=== PATIENT | male | born 1980 | race Caucasian/White ===

== ENCOUNTER 2017-10-04 10:17 | Emergency (ER) | payer OTHER ==
[2017-10-04 10:52] LABS: BASOPHILS % (AUTO) 0.4 %; EOSINOPHILS # (AUTO) 0.2 10^3/uL (0.0-0.7); EOSINOPHILS % (AUTO) 3.4 %; HGB - HEMOGLOBIN 15.2 g/dL (14.0-18.0); LYMPHOCYTES # (AUTO) 2.2 10^3/uL (1.5-3.5); LYMPHOCYTES % (AUTO) 36.7 %; MEAN CORPUSCULAR HEMOGLOBIN 31.1 pg (27.0-31.0); MEAN CORPUSCULAR HGB CONC 34.6 g/dL (32.0-36.0); MEAN CORPUSCULAR VOLUME 89.9 fL (80.0-94.0); MEAN PLATELET VOLUME 8.7 fL (7.4-11.4); MONOCYTES # (AUTO) 0.5 10^3/uL (0.0-1.0); MONOCYTES % (AUTO) 7.5 %; NEUTROPHILS # (AUTO) 3.1 10^3/uL (1.5-6.6); PLT - PLATELET COUNT 171 10^3/uL (130-450); RED CELL DISTRIBUTION WIDTH 13.4 % (12.0-15.0)
--- NOTE | 2017-10-04 10:59 | XRAY Report ---
Procedure Date: 10/04/2017 Accession Number: [id number] / [id number] Procedure: XR - Chest 2 View X-Ray CPT Code: 42209 FULL RESULT: EXAM: CHEST RADIOGRAPHY EXAM DATE: 10/04/2017 10:53 AM. CLINICAL HISTORY: Chest pain. COMPARISON: None. TECHNIQUE: 2 views. FINDINGS: Lungs/Pleura: No focal opacities evident. No pleural effusion. No pneumothorax. Normal volumes. Mediastinum: Heart and mediastinal contours are unremarkable. Other: Unremarkable bony structures.. IMPRESSION: Negative 2-view chest radiography. [facility]
--- NOTE | 2017-10-04 11:03 | ED Physician Documentation ---
PD HPI CHEST PAIN - Stated complaint Stated Complaint: CHEST PAIN - Chief complaint Chief Complaint: Cardiac - History obtained from History obtained from: Patient - History of Present Illness Timing - onset: How many days ago (6) Timing - onset during: Rest Timing - duration: Days (6) Timing - details: Still present, Intermittant (more often the past 2 days, right sharp pain, not associated with activity but is worse with certain motions , mostly of shoulder. Some with breathing deeply. No dyspnea per se. No cough.) Quality: Aching, Sharp, Pain Location: Right chest Radiation: No: Jaw, Neck, Back Worsened by: Inspiration, Movement, Position (lying on side). No: Palpation Associated symptoms: No: Shortness of air, Diaphoresis, Nausea, Feeling faint / dizzy, Cough Similar symptoms before: Has not had sx before Recently seen: Not recently seen Review of Systems Constitutional: denies: Fever, Chills, Myalgias Nose: denies: Rhinorrhea / runny nose, Congestion Throat: denies: Sore throat Cardiac: reports: Chest pain / pressure. denies: Palpitations, Pedal edema, Calf pain Respiratory: denies: Dyspnea, Cough, Wheezing GI: denies: Abdominal Pain, Nausea, Vomiting Musculoskeletal: denies: Back pain, Extremity swelling Neurologic: denies: Generalized weakness, Near syncope PD PAST MEDICAL HISTORY - Past Medical History Cardiovascular: None Respiratory: None Neuro: None Endocrine/Autoimmune: None - Present Medications Home Medications: Ambulatory Orders Medication Instructions Recorded Confirmed Naproxen [Naprosyn] 500 mg PO BID #20 tablet 10/04/17 - Allergies Allergies/Adverse Reactions: Allergies Allergy/AdvReac Type Severity Reaction Status Date / Time No Known Drug Allergies Allergy Verified 10/04/17 10:23 - Living Situation Living Arrangement: reports: At home - Social History Does the pt smoke?: Yes Smoking Status: Current every day smoker Does the pt drink ETOH?: Yes Does the pt have substance abuse?: No - Family History Family history: denies: CAD, Sudden PD ED PE NORMAL - Vitals Vital signs reviewed: Yes - General General: Alert and oriented X 3, No acute distress, Well developed/nourished - HEENT HEENT: Ears normal, Pharynx benign - Neck Neck: Supple, no meningeal sign, No adenopathy - Cardiac Cardiac: RRR, No murmur - Respiratory Respiratory: Clear bilaterally, Other (no chestwall tenderness) - Abdomen Abdomen: Soft, Non tender - Back Back: No CVA TTP, No spinal TTP - Derm Derm: Normal color, Warm and dry, No rash - Extremities Extremities: No deformity, No tenderness to palpate, No edema, No calf tenderness / cord - Neuro Neuro: Alert and oriented X 3, No motor deficit, Normal speech Results - Vitals Vitals: Vital Signs - 24 hr 10/04/17 10/04/17 10:21 11:56 Temperature 35.7 C L 36.0 C L Heart Rate 80 60 Respiratory 20 20 Rate Blood Pressure 164/98 H 115/89 H O2 Saturation 98 97 Oxygen O2 Source Room air - EKG (time done) 10:26 Rate: Rate (enter#) (67) Rhythm: NSR [place]: Normal Intervals: Normal [place] QRS: Normal Ischemia: Normal ST segments. No: ST elevation c/w ischemia, ST depression, Hyperacute T waves - Labs Labs: Laboratory Tests 10/04/17 10/04/17 10/04/17 10:30 10:30 10:30 WBC 6.0 RBC 4.90 Hgb 15.2 Hct 44.1 MCV 89.9 MCH 31.1 H MCHC 34.6 RDW 13.4 Plt Count 171 MPV 8.7 Neut # (Auto) 3.1 Lymph # (Auto) 2.2 [place] # (Auto) 0.5 Eos # (Auto) 0.2 Baso # (Auto) 0.0 Absolute Nucleated RBC 0.00 Nucleated RBC % 0.0 Sodium 136 Potassium 4.3 Chloride 102 Carbon Dioxide 26 Anion Gap 8.0 BUN 12 Creatinine 1.1 Estimated GFR (MDRD) 76 L Glucose 95 Calcium 9.2 Total Bilirubin 1.1 H AST 28 ALT 38 Alkaline Phosphatase 62 Troponin I < 0.04 Total Protein 7.8 Albumin 4.1 Globulin 3.7 Albumin/Globulin Ratio 1.1 Lipase 33 - Rads (name of study) chest xray Radiology: Prelim report reviewed (no acute process), EMP read contemporaneously PD MEDICAL DECISION MAKING - ED course Complexity details: reviewed results, considered differential (right chest pain sounds musculoskeletal, with movement and deep breathing. CXR and ECG are okay. ), d/w patient - Sepsis Event Vital Signs: Vital Signs - 24 hr 10/04/17 10/04/17 10:21 11:56 Temperature 35.7 C L 36.0 C L Heart Rate 80 60 Respiratory 20 20 Rate Blood Pressure 164/98 H 115/89 H O2 Saturation 98 97 Oxygen O2 Source Room air Departure - Departure Disposition: 01 Home, Self Care Clinical Impression: Right-sided chest pain Condition: Stable Record reviewed to determine appropriate education?: Yes Instructions: ED Chest Pain Atypical Unkn Cause Follow-Up: STEFANIA SEWELL MD [Primary Care Provider] - Prescriptions: Naproxen [Naprosyn] 500 mg PO BID #20 tablet Comments: Your EKG, chest x-ray, blood tests are normal without any signs of heart or lung cause of the pain. Presume more musculoskeletal at this time and would go with some anti-inflammatories such as naproxen twice daily for the next 7-10 days. Follow-up with your primary care in the next few days, call for an appointment. Recheck if other symptoms developing. Discharge Date/Time: 10/04/17 11:57
[2017-10-04 11:09] LABS: ALBUMIN 4.1 g/dL (3.2-5.5); ALBUMIN/GLOBULIN RATIO 1.1 (1.0-2.2); BILIRUBIN,TOTAL 1.1 mg/dL (0.2-1.0); CALCIUM 9.2 mg/dL (8.5-10.3); CREATININE 1.1 mg/dL (0.6-1.2); TOTAL PROTEIN 7.8 g/dL (6.7-8.2)
[2017-10-04] MEDS ORDERED: IBUPROFEN 600 MG TABLET PO STA (11:44)
[2017-10-04] MEDS ORDERED: ACETAMINOPHEN 325 MG TABLET PO STA (11:44)
[2017-10-04 11:57] VITALS: BP 115/89
== END 2017-10-04 11:57 | disposition home or self-care (01) ==
LOC: ED 10:17
DX: R07.9 Chest pain, unspecified (principal); F17.200 Nicotine dependence, unspecified, uncomplicated
CPT/HCPCS: 36415; 71046; 80053; 83690; 84484; 85025; 93005; 99283; A9270

== ENCOUNTER 2018-09-28 09:13 | Emergency (ER) | payer OTHER ==
[2018-09-28 09:58] LABS: BASOPHILS % (AUTO) 0.5 %; EOSINOPHILS # (AUTO) 0.3 10^3/uL (0.0-0.7); EOSINOPHILS % (AUTO) 4.9 %; HGB - HEMOGLOBIN 13.7 g/dL (14.0-18.0); LYMPHOCYTES # (AUTO) 1.8 10^3/uL (1.5-3.5); MEAN CORPUSCULAR HEMOGLOBIN 29.1 pg (27.0-31.0); MEAN CORPUSCULAR HGB CONC 32.2 g/dL (32.0-36.0); MEAN CORPUSCULAR VOLUME 90.4 fL (80.0-94.0); MEAN PLATELET VOLUME 10.1 fL (7.4-11.4); MONOCYTES # (AUTO) 0.4 10^3/uL (0.0-1.0); NEUTROPHILS # (AUTO) 2.9 10^3/uL (1.5-6.6); NEUTROPHILS % (AUTO) 53.4 %; PLT - PLATELET COUNT 216 10^3/uL (130-450); RED BLOOD COUNT 4.71 10^6/uL (4.70-6.10); RED CELL DISTRIBUTION WIDTH 13.8 % (12.0-15.0); WHITE BLOOD COUNT 5.5 x10^3/uL (4.8-10.8)
[2018-09-28 10:04] LABS: ALBUMIN/GLOBULIN RATIO 1.1 (1.0-2.2); BILIRUBIN,TOTAL 0.6 mg/dL (0.2-1.0); CALCIUM 9.5 mg/dL (8.5-10.3); TOTAL PROTEIN 7.5 g/dL (6.7-8.2)
[2018-09-28 10:07] VITALS: BP 129/95
[2018-09-28 10:13] LABS: BILIRUBIN,URINE NEGATIVE (NEGATIVE); GLUCOSE, URINE (UA) NEGATIVE (NEGATIVE); KETONES,URINE (UA) NEGATIVE (NEGATIVE); LEUKOCYTE ESTERASE, URINE NEGATIVE (NEGATIVE); NITRITE,URINE NEGATIVE (NEGATIVE); OCCULT BLOOD,URINE NEGATIVE (NEGATIVE); PH,URINE 6.5 PH (5.0-7.5); PROTEIN,URINE NEGATIVE (NEGATIVE); UROBILINOGEN,URINE 1 (NORMAL) E.U./dL (NORMAL)
[2018-09-28 10:24] LABS: CLARITY,URINE CLEAR (CLEAR)
[2018-09-28] MEDS ORDERED: KETOROLAC 30 MG/ML VIAL IVP STA (10:29)
--- NOTE | 2018-09-28 11:56 | ED Physician Documentation ---
History of Present Illness - Stated complaint Stated Complaint: ABD PX - Chief complaint Chief Complaint: Abd Pain - History obtained from History obtained from: Patient - History of Present Illness Timing: Other (2-3 days) Pain level max: 3 Pain level now: 2 Improved by: rest Worsened by: movement - Additonal information Additional information: 38-year-old male presents to the emergency department stating that he has left anterior abdominal pain for the past 3 to 4 days. He states that at approximately 3 months ago, he fell while in [place], suffered a splenic hematoma, kidney hematoma. He states these were nonoperative, observed in the hospital for 1 to 2 days and then sent home. He also had rib fractures at that time. Since that time he has had chronic left-sided back pain. States that he was off of work, but is now started working out again and has been the abdominal pain. No nausea. No vomiting. No diarrhea. No constipation. No fevers. Has not taken anything for the pain. He is active duty. Review of Systems Constitutional: denies: Fever, Chills Respiratory: denies: Cough GI: denies: Nausea, Vomiting, Constipation, Diarrhea, Hematemesis, Bloody / black stool : denies: Dysuria, Frequency, Hesitancy, Hematuria Musculoskeletal: denies: Neck pain, Back pain PD PAST MEDICAL HISTORY - Past Medical History Cardiovascular: None Respiratory: None Neuro: None Endocrine/Autoimmune: None - Present Medications Home Medications: Ambulatory Orders Medication Instructions Recorded Confirmed Naproxen [Naprosyn] 500 mg PO BID #20 tablet 10/04/17 Meloxicam [Mobic] 15 mg PO DAILY PRN #20 tablet 09/28/18 - Allergies Allergies/Adverse Reactions: Allergies Allergy/AdvReac Type Severity Reaction Status Date / Time No Known Drug Allergies Allergy Verified 09/28/18 09:23 - Social History Does the pt smoke?: Yes Smoking Status: Current every day smoker Does the pt drink ETOH?: Yes Does the pt have substance abuse?: No PD ED PE NORMAL - Vitals Vital signs reviewed: Yes - General General: Alert and oriented X 3, No acute distress, Well developed/nourished - HEENT HEENT: Moist mucous membranes - Neck Neck: Supple, no meningeal sign - Cardiac Cardiac: RRR, Strong equal pulses - Respiratory Respiratory: No respiratory distress, Clear bilaterally - Abdomen Abdomen: Soft, Non tender, Non distended - Back Back: No CVA TTP, No spinal TTP - Derm Derm: Warm and dry - Extremities Extremities: No edema, No calf tenderness / cord - Neuro Neuro: Alert and oriented X 3, 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, No motor deficit, No sensory deficit, Normal speech - Psych Psych: Normal mood, Normal affect Results - Vitals Vitals: Vital Signs - 24 hr 09/28/18 09/28/18 09/28/18 09:19 10:06 10:57 Temperature 36.4 C L Heart Rate 72 58 L 50 L Respiratory 16 16 17 Rate Blood Pressure 146/93 H 129/95 H 129/95 H O2 Saturation 99 99 98 09/28/18 12:05 Temperature 36.7 C Heart Rate 57 L Respiratory 18 Rate Blood Pressure 129/95 H O2 Saturation 99 Oxygen O2 Source Room air - Labs Labs: Laboratory Tests 09/28/18 09/28/18 09/28/18 09:40 09:40 09:50 WBC 5.5 RBC 4.71 Hgb 13.7 L Hct 42.6 MCV 90.4 MCH 29.1 MCHC 32.2 RDW 13.8 Plt Count 216 MPV 10.1 Neut # (Auto) 2.9 Lymph # (Auto) 1.8 [place] # (Auto) 0.4 Eos # (Auto) 0.3 Baso # (Auto) 0.0 Absolute Nucleated RBC 0.00 Nucleated RBC % 0.0 Sodium 140 Potassium 4.2 Chloride 105 Carbon Dioxide 25 Anion Gap 10.0 BUN 10 Creatinine 1.0 Estimated GFR (MDRD) 85 L Glucose 97 Calcium 9.5 Total Bilirubin 0.6 AST 34 ALT 39 Alkaline Phosphatase 58 Total Protein 7.5 Albumin 4.0 Globulin 3.5 Albumin/Globulin Ratio 1.1 Lipase 31 Urine Color YELLOW Urine Clarity CLEAR Urine pH 6.5 Ur Specific [place] 1.020 Urine Protein NEGATIVE Urine Glucose (UA) NEGATIVE Urine Ketones NEGATIVE Urine Occult Blood NEGATIVE Urine Nitrite NEGATIVE Urine Bilirubin NEGATIVE Urine Urobilinogen 1 (NORMAL) Ur Leukocyte Esterase NEGATIVE Ur Microscopic Review NOT INDICATED Urine Culture Comments NOT INDICATED PD MEDICAL DECISION MAKING - ED course Complexity details: considered differential, d/w patient ED course: 38-year-old male with what appears to be an abdominal wall strain. Feels better after Toradol. No tenderness on examination. No evidence of intra-abdominal pathology. Normal laboratory testing. We will continue supportive care and follow-up with his doctor for further care. Patient counseled regarding signs and symptoms for which I believe and urgent re-evaluation would be necessary. Patient with good understanding of and agreement to plan and is comfortable going home at this time This document was made in part using voice recognition software. While efforts are made to proofread this document, sound alike and grammatical errors may occur. Departure - Departure Disposition: 01 Home, Self Care Clinical Impression: Acute myofascial strain Condition: Good Instructions: ED Strain Abdominal Muscle Follow-Up: STEFANIA SEWELL MD [Primary Care Provider] - Within 1 week Prescriptions: Meloxicam [Mobic] 15 mg PO DAILY PRN #20 tablet PRN Reason: pain Comments: Use the medications as prescribed. Return if you worsen. Forms: Activity restrictions Discharge Date/Time: 09/28/18 12:08
== END 2018-09-28 12:08 | disposition home or self-care (01) ==
LOC: ED 09:13
DX: S39.011A Strain of muscle, fascia and tendon of abdomen, initial encounter (principal); X58.XXXA Exposure to other specified factors, initial encounter; F17.200 Nicotine dependence, unspecified, uncomplicated; Z87.828 Personal history of other (healed) physical injury and trauma
CPT/HCPCS: 36415; 80053; 81001; 81003; 83690; 85025; 87086; 96374; 99284